=== PATIENT | male | born 1990 | race Hispanic/Latino ===

== ENCOUNTER 2023-04-12 19:07 | Emergency (ER) | payer BC ==
[~2023-04-12] VITALS: Ht 182.9 cm; Wt 118.4 kg
[2023-04-12 19:33] VITALS: BP 125/70; PULSE 68; RESP 20; O2SAT 99
[2023-04-12] MEDS ORDERED: HYDROXYZINE 25 MG TABLET PO ONE ×2 (23:00)
== END 2023-04-12 23:20 | disposition home or self-care (01) ==
LOC: EDH 19:07
DX: F41.9 Anxiety disorder, unspecified (principal)
CPT/HCPCS: 93005

== ENCOUNTER 2024-11-05 09:10 | Emergency (ER) | payer SELFPAY ==
[~2024-11-05] VITALS: Ht 180.3 cm; Wt 127.0 kg
[2024-11-05] MEDS ORDERED: AMOX1TAB16 PO (09:32)
[2024-11-05] MEDS ORDERED: PRED20TA3 PO (09:32)
--- NOTE | 2024-11-05 09:33 | ERN ---
General Chief Complaint: Earache Stated Complaint: LEFT EAR PAIN Time Seen by MD: 09:12 History of Present Illness Initial Comments 34-year-old male, otherwise healthy, who presents for left earache and pain. Patient reports he was had viral URI type symptoms for a week or so. No fevers. Yesterday developed left-sided ear pain and pressure on the side of his face. He went to [facility] and had lab work and a CT scan, he was told there was nothing wrong. On clinical exam he has a otitis media. Allergies: Coded Allergies: No Known Allergies (Unverified Allergy, Unknown, 04/12/23) Past Medical History Past Medical History: Anxiety Past Surgical History: None Family History Family History: Negative Social History Social History: Negative, Lives with family ROS Dictation CONSTITUTIONAL: No chills, no fever, no weakness, no diaphoresis, no malaise. HEAD/FACE: No signs of trauma. EENT: Left ear pain RESPIRATORY: No cough, no orthopnea, no SOB, no stridor, no wheezing. CARDIOVASCULAR: No chest pain, no edema, no palpitations, no syncope. GASTROINTESTINAL/ABDOMINAL: No abdominal pain, no constipation, no diarrhea, no nausea, no vomiting. GENITOURINARY: No abnormal discharge, no dysuria, no frequent urination, no hematuria. No complaints of pain in the genitals. MUSCULOSKELETAL: No back pain, no gout, no joint pain, no joint swelling, no muscle pain, no muscle stiffness, no neck pain. INTEGUMENTARY: No change in color, no change in hair/nails, no dryness, no lesion, no lumps, no rash. NEUROLOGICAL/PSYCH: No anxiety, not depressed, no emotional problem, no headache, no numbness, no pre-existing deficit, no history of seizures, no tremors, no weakness. HEMATOLOGIC/LYMPHATIC: Not anemic, no history of blood clots, no apparent bleeding, no bruising, glands not swollen. All Systems Negative, Except as Noted. Physical Exam Physical Exam Dictation VITAL SIGNS: Reviewed. GENERAL APPEARANCE: Alert, oriented x3, no acute distress, obese. HEAD AND FACE: Non-traumatic. EYES: PERRL, pink conjunctivas, eyelid no trauma, anterior chamber clear. EARS: Left otitis media NOSE: No discharge, no bleeding. OROPHARYNX: Mouth normal, teeth no caries, tongue pink. Pharynx clear, no erythema. Tonsils no exudates, no abscesses noted. Mucous membrane moist. NECK: Supple, non-tender, no thyromegaly, no masses, no JVD, no bruits. BREAST: Deferred. CHEST: No tenderness, no crepitus, no paradoxical movement, no retractions. LUNGS: Clear, well-ventilated, symmetric, no rales, no wheezing, no rhonchi, no stridor, good breath sounds bilaterally. HEART: Regular rate, regular rhythm, no murmur, no gallops. VASCULAR: No peripheral edema. ABDOMEN: Soft, positive bowel sounds, nondistended, no guarding, nontender, no rebound, no masses no hepatomegaly, no splenomegaly, no Cornell's sign, no hernias. RECTAL: Deferred. GENITAL: Deferred. NEUROLOGICAL: Normal speech, gross motor function intact, gross sensory function intact. MUSCULOSKELETAL: Neck nontender, full range of motion, back nontender, full range of motion. EXTREMITIES: Nontender, full range of motion. SKIN: Color pink, dry, no turgor, no rash, no lacerations, no abrasions, no contusions. LYMPHATICS: Deferred. MDM CC: Left ear pain Historian: Patient Comorbidities: None Limitations by social determinants of health: None Differential diagnosis: Left otitis media, otitis externa, parotitis, viral URI, other. Vital signs are stable Clinically he does have some erythema to the left TM. There is possibly some swelling round the left parotid gland. No labs or imaging indicated. He was recently worked up at [facility] Given a dose of dexamethasone IM, it even dose of Toradol IM. We will DC with short course of steroids and antibiotics and recommend PCP follow up. ED Course Orders Procedure Category Date Status Time Dexamethasone 4mg/Ml PHA 11/05/24 Verified 1ml Vial (Dexametha 09:30 Vital Signs Date Time Temp Pulse Resp B/P (MAP) Pulse Ox O2 Delivery O2 Flow Rate FiO2 11/05/24 09:16 97.9 70 16 121/73 97 Room Air* 0 21 11/05/24 09:11 97.9 68 16 121/73 97 Room Air 0 DX & DISP Disposition: Discharge Departure Impression: Primary Impression: Left otitis media Condition: Stable Scripts Prednisone (Prednisone) 20 Mg Tablet 1 TAB PO BID for 5 Days, #10 TAB 0 Refills Prov: BINA CARDENAS DO 11/05/24 Amoxicillin/Potassium Clav (Amox Tr-K Clv 875-125 mg Tab) 875 Mg-125 Mg Tablet 1 TAB PO BID for 10 Days, #20 TAB 0 Refills Prov: BINA CARDENAS DO 11/05/24 Additional Instructions: There is some erythema and swelling to your left eardrum consistent with an ear infection. You also have some mild swelling of the parotid gland. This is often viral. I have prescribed Augmentin, which is an antibiotic. Please take as prescribed. I have prescribed prednisone, which is an anti-inflammatory steroid. Please take as prescribed. Make sure that you are taking 800 mg of ibuprofen 3 times a day. This medication is [id number]. Drink plenty of liquids. I recommend sour liquids such as lemon juice. Please follow up with your primary doctor in 48 hours for re-evaluation. Return to the emergency department as needed. Referrals: SELF,REFERRAL (PCP) BINA CARDENAS DO Nov 05, 2024 09:33
[2024-11-05] MEDS: ketOROlac 15MG/ML VIAL (15MG/ML) IM ONE (09:39)
[2024-11-05] MEDS: dexaMETHasone SOD PHOSPHATE 4 MG/ML 1ML VIAL ONE (09:40)
[2024-11-05] MEDS: ketOROlac 15MG/ML VIAL (15MG/ML) ONE (09:44)
[2024-11-05] MEDS: dexaMETHasone SOD PHOSPHATE 10MG/ML 1ML VIAL IM ONE (09:45)
[2024-11-05 09:50] VITALS: BP 128/78; PULSE 74; RESP 16; TEMP 98.2; O2SAT 97
== END 2024-11-05 09:49 | disposition home or self-care (01) ==
LOC: EDH 09:10
DX: H66.92 Otitis media, unspecified, left ear (principal); F41.9 Anxiety disorder, unspecified
CPT/HCPCS: 99284; 96372 ×2; J1100; J1885